=== PATIENT | female | born 1940 | race Caucasian/White ===

== ENCOUNTER 2018-07-25 03:28 | Inpatient (IN) | payer OTHER ==
[~2018-07-25] VITALS: Ht 152.4 cm; Wt 108.5 kg
[2018-07-25] MEDS ORDERED: PREG100 PO (04:09)
[2018-07-25 04:10] LABS: Calcium, Ionized (POC) 1.11 mmol/L (1.10-1.46); Chloride (POC) 97 mmol/L (98-108); Creatinine (POC) 0.6 mg/dL (0.6-1.0); Glucose (ISTAT POC) 125 mg/dL (70-99); Hemoglobin (POC) 9.5 g/dL (12.0-16.0); Potassium (POC) 3.7 mmol/L (3.5-5.5); Sodium (POC) 132 mmol/L (135-148); Total CO2 (POC) 23 mmol/L (21-32)
[2018-07-25] MEDS ORDERED: DEXL60CA3 PO (04:10)
[2018-07-25] MEDS ORDERED: VENL25 PO ×2 (04:10→04:15)
[2018-07-25] MEDS ORDERED: ANASTROZOLE5 GM PO (04:11)
[2018-07-25] MEDS ORDERED: CYCL10 PO (04:12)
[2018-07-25] MEDS ORDERED: Omeprazole20 M1 PO (04:13)
[2018-07-25] MEDS ORDERED: LEVSOD150 PO (04:14)
[2018-07-25] MEDS ORDERED: LOSA25 PO (04:14)
[2018-07-25] MEDS ORDERED: POTCHL20ER PO (04:15)
[2018-07-25] MEDS ORDERED: ONDA4 PO (04:15)
[2018-07-25] MEDS ORDERED: AMIT25 PO (04:16)
[2018-07-25] MEDS ORDERED: BUTALB-ACETAMI1 EACH PO (04:17)
[2018-07-25] MEDS ORDERED: RANITIDINE 150MG PO (04:18)
[2018-07-25] MEDS ORDERED: BUSP15 PO (04:19)
[2018-07-25] MEDS ORDERED: Driminate50 MG PO (04:20)
[2018-07-25] MEDS ORDERED: ANASTROZOLE 1MG PO (04:24)
[2018-07-25 04:27] LABS: BASOPHILS ABSOLUTE AUTO 0.05 K/mm3 (0.00-0.23); BASOPHILS PERCENT AUTO 0 % (0-2); EOSINOPHILS ABSOLUTE AUTO 0.01 K/mm3 (0.00-0.68); EOSINOPHILS PERCENT AUTO 0 % (0-6); Hemoglobin 8.2 g/dL (11.5-16.0); IMMATURE GRAN PERCENT AUTO 1 % (0-1); LYMPHOCYTES ABSOLUTE AUTO 0.96 K/mm3 (0.84-5.20); LYMPHOCYTES PERCENT AUTO 5 % (21-46); MONOCYTES ABSOLUTE AUTO 1.16 K/mm3 (0.16-1.47); MONOCYTES PERCENT AUTO 6 % (4-13); Mean Corpuscular HGB 22.3 pg (26.0-34.0); Mean Corpuscular HGB Conc 30.4 g/dL (31.5-36.5); Mean Corpuscular Volume 73 fL (80-100); Mean Platelet Volume 8.9 fL (9.1-12.4); NEUTROPHILS ABSOLUTE AUTO 17.63 K/mm3 (1.96-9.15); NEUTROPHILS PERCENT AUTO 89 % (41-73); Platelet Count 478 K/mm3 (150-400); RDW Coefficient Variation 16.8 % (11.7-14.2); RDW Standard Deviation 44.5 fL (35.1-46.3); Red Blood Cell Count 3.68 M/mm3 (3.80-5.20); White Blood Cell Count 19.91 K/mm3 (4.00-11.30)
[2018-07-25 04:50] LABS: Alanine Aminotransfer (ALT/SGP 21 U/L (12-78); Albumin, Blood 3.8 g/dL (3.4-5.0); Alk Phos 181 U/L (50-136); Anion Gap 12 mmol/L (6-16); Aspartate Aminotrans (AST/SGOT 58 U/L (12-37); Bilirubin, Total 0.5 mg/dL (0.1-1.0); Blood Urea Nitrogen 12 mg/dL (8-24); Bun/Creatinine Ratio 21.6 (12.0-20.0); CO2, Blood 22 mmol/L (21-32); Calcium, Blood 8.9 mg/dL (8.5-10.1); Chloride, Blood 98 mmol/L (98-108); Creatinine, Blood 0.56 mg/dL (0.40-1.00); Globulin, Blood 3.8 g/dL (2.2-4.0); Glomerular Filtration Rate >60 (60-); Glucose, Blood 120 mg/dL (70-99); Potassium, Blood 3.7 mmol/L (3.5-5.5); Salicylate <1.7 mg/dL (2.8-20.0); Sodium, Blood 132 mmol/L (136-145); Total Protein, Blood 7.6 g/dL (6.4-8.2)
[2018-07-25 04:53] LABS: Ethanol (Alcohol), Blood, Med <3 mg/dL; Troponin I 0.031 ng/mL (0.000-0.040)
[2018-07-25 04:59] LABS: Thyroid Stimulating Hormone 0.749 uIU/mL (0.360-4.800)
[2018-07-25 05:00] LABS: Acetaminophen, Random <2.0 ug/mL (10.0-30.0)
[2018-07-25 05:12] LABS: U Barbituate Screen DETECTED; U Benzodiazapine Screen DETECTED; U Opiates Screen DETECTED
[2018-07-25 05:13] LABS: U Amphetamine Screen Not Detected; U Buprenorphine Screen Not Detected; U Cannabinoids Screen Not Detected; U Cocaine Screen Not Detected; U Methadone Screen Not Detected; U Methamphetamine Screen Not Detected; U Oxycodone Screen Not Detected; U Phencyclidine Screen Not Detected; U Propoxyphene Screen Not Detected
[2018-07-25 05:34] LABS: Base Excess Venous 1.5 mmol/L; Bicarbonate Venous 25.6 mmol/L (24.0-30.0); PO2 Venous 71.7 mmHg (38-42); pH Blood Venous 7.44 (7.34-7.37)
[2018-07-25 05:59] LABS: Source, Urine Clean Catch
[2018-07-25 06:02] LABS: Appearance, Urine Cloudy (Clear); Bilirubin, Urine Neg (Neg); Blood, Urine 5+ (Neg); Color, Urine Yellow (P-Yellow); Glucose Qualitative, Urine Neg (Neg); Ketones, Urine 3+ (Neg); Leukocyte Esterase, Urine Neg (Neg); Nitrite, Urine Neg (Neg); Protein, Urine 4+ (Neg); Specific Gravity, Urine 1.025 (1.003-1.022); Urobilinogen, Urine NORM (Normal)
[2018-07-25 06:09] LABS: Amorphous Mod (0-Heavy); Bacteria Rare /hpf; Mucus Light (0-Heavy); Squamous Epithelial Cells Few /hpf (Few); White Blood Cells, Urine Not Seen /hpf (0-5)
[2018-07-25] MEDS ORDERED: Norco 10-325 T1 EACH PO (08:34)
--- NOTE | 2018-07-25 08:59 | NUR ---
CALLED AND SPOKE WITH PT'S DAUGHTER RADHA TO OBTAIN MEDICATION AND PAST MEDICAL HX. PT ALSO HAS OTHER 2 DAUGHTERS THAT ALSO HELP CARE FOR HER WELL TRELL LUGO, LAUREN AL.
--- NOTE | 2018-07-25 09:15 | NUR ---
RECONCILED MOST OF HOME MEDS: 1 ZIPLOC BAG OF MEDICATIONS REMAIN AT HOME AND PT'S DAUGHTER IS SUPPOSED TO BRING THEM IN TODAY. APPEARS PT TOOK APPROXIMATELY 39 TABS OF 25MG AMITRIPTYLINE. PT REC'D A 90 DAY SUPPLY 07/13/19, AND 39 TABS ARE UNACCOUNTED FOR.
[2018-07-25 10:10] LABS: BASOPHILS ABSOLUTE AUTO 0.01 K/mm3 (0.00-0.23); BASOPHILS PERCENT AUTO 0 % (0-2); EOSINOPHILS ABSOLUTE AUTO 0.04 K/mm3 (0.00-0.68); EOSINOPHILS PERCENT AUTO 0 % (0-6); Hematocrit 22.2 % (33.0-51.0); Hemoglobin 6.6 g/dL (11.5-16.0); IMMATURE GRAN ABSOLUTE AUTO 0.04 K/mm3 (0.00-0.10); IMMATURE GRAN PERCENT AUTO 0 % (0-1); LYMPHOCYTES ABSOLUTE AUTO 1.68 K/mm3 (0.84-5.20); LYMPHOCYTES PERCENT AUTO 14 % (21-46); MONOCYTES ABSOLUTE AUTO 1.08 K/mm3 (0.16-1.47); MONOCYTES PERCENT AUTO 9 % (4-13); Mean Corpuscular HGB 22.3 pg (26.0-34.0); Mean Corpuscular HGB Conc 29.7 g/dL (31.5-36.5); Mean Corpuscular Volume 75 fL (80-100); Mean Platelet Volume 8.6 fL (9.1-12.4); NEUTROPHILS ABSOLUTE AUTO 9.54 K/mm3 (1.96-9.15); NEUTROPHILS PERCENT AUTO 77 % (41-73); Platelet Count 366 K/mm3 (150-400); RDW Coefficient Variation 16.6 % (11.7-14.2); RDW Standard Deviation 45.5 fL (35.1-46.3); Red Blood Cell Count 2.96 M/mm3 (3.80-5.20); White Blood Cell Count 12.39 K/mm3 (4.00-11.30)
[2018-07-25 10:13] LABS: Alanine Aminotransfer (ALT/SGP 19 U/L (12-78); Albumin, Blood 2.9 g/dL (3.4-5.0); Alk Phos 140 U/L (50-136); Anion Gap 10 mmol/L (6-16); Aspartate Aminotrans (AST/SGOT 47 U/L (12-37); Bilirubin, Total 0.4 mg/dL (0.1-1.0); Blood Urea Nitrogen 9 mg/dL (8-24); Bun/Creatinine Ratio 19.9 (12.0-20.0); CO2, Blood 27 mmol/L (21-32); Calcium, Blood 8.1 mg/dL (8.5-10.1); Chloride, Blood 98 mmol/L (98-108); Creatinine, Blood 0.45 mg/dL (0.40-1.00); Glomerular Filtration Rate >60 (60-); Glucose, Blood 107 mg/dL (70-99); Potassium, Blood 3.2 mmol/L (3.5-5.5); Sodium, Blood 135 mmol/L (136-145); Total Protein, Blood 5.9 g/dL (6.4-8.2)
[2018-07-25 10:38] LABS: Base Excess Venous 5.1 mmol/L; Bicarbonate Venous 28.5 mmol/L (24.0-30.0); PCO2 Venous 47.4 mmHg (38-42); pH Blood Venous 7.41 (7.34-7.37)
--- NOTE | 2018-07-25 11:13 | NUR ---
PT UPDATE: SPOKE WITH DR WALTERS RE: HYPOKALEMIA. ELECTROLYTE REPLACEMENT PROTOCOL ORDERED. CONSULTED WITH GI: DR REGALADO WILL DO EGD TODAY.
--- NOTE | 2018-07-25 13:21 | NUR ---
0730: PT TO ICU ROOM 8 FROM ER, REPORT RECIEVED, CARE ASSUMED. PT INTUBATED, VENT AC 14, TV 450, FIO2 30%, PEEP 5. PT'S RR 19, TV 500'S, VSS, SPO2 100%. VERSED AT 4MG/HR, PROPOFOL AT 60MCG/KG/MIN, PT REMAINS RESPONSIVE TO VOICE AND PAIN, DOES NOT OPEN EYES. PUPILS UNEQUAL, SLUGGISHLY REACTIVE TO LIGHT. HR 70'S NSR, LS CTA, ABDOMEN SOFT, BT PRESENT. NON PITTING EDEMA NOTED TO BLE'S, EXTREMS ELEVATED ON PILLOWS, SWB RESTRAINTS IN PLACE PER ORDERS. PT HAS MASTECTOMY WOUND ON LEFT CHEST, INCISION REMAINS PARTIALLY OPEN WITH SCANT PURULENT DRAINAGE, SEE PICTURES. 22G IV RAC, RIGHT IJ CL, ALL LINES INFUSING WITHOUT DIFFICULTY. INIGUEZ PATENT AND DRAINING CLEAR YELLOW URINE. 0830: DR. WALTERS AT BEDSIDE TO ASSESS PT, PRBC INFUSION HELD AT THIS TIME PER ORDERS. LR AND PROTONIX DC'D. 0915:TV CHANGED TO [address] WALTERS, WILL TITRATE PROPOFOL AND VERSED DOWN ORDERED. 1000: PT REPOSITIONED, IS GRIMACING AND HAVING LOW TV'S WITH MOVEMENT, APPEARS TO BE UNCOMFORTABLE WITH REPOSITIONING. WILL CONTINUE TO TITRATE PROPOFOL AND VERSED ABLE. 1200: FENTANYL FIRST AID TEACHER AND PRBC'S INFUSING PER ORDERS, SEE TRANSFUSION FLOW SHEET. PT AFEBRILE. PT REPOSITIONED, ORAL CARE PROVIDED. SCDS ON BILAT LE'S. 1250: CULTURE OF LEFT CHEST INCISION SENT. PT RESTING QUIETLY IN BED, NO GRIMACING OR RESTLESSNESS NOTED. 1330: PT CONTINUES TO REST, PRBC'S INFUSING WITHOUT S/SX REACTION, MAP LOW, PROPOFOL DECREASED TO 35MCG/KG/MIN, VERSED OFF AT THIS TIME. WILL CONTINUE TO MONITOR.
--- NOTE | 2018-07-25 15:15 | NUR ---
1500: EGD COMPLETED, DR REPORTS NO ACTIVE BLEEDING FROM STOMACH AT THIS TIME. PT'S VSS, VENT SETTINGS UNCHANGED. PROPOFOL 30MCG/KG/MIN, FENTANYL 100MCG/HR. PT RESTING QUIETLY WITH NO AGITATION OR RESTLESNESS AT THIS TIME.
[2018-07-25] MEDS ORDERED: BELSOMRA20 MG PO (16:11)
[2018-07-25] MEDS ORDERED: MAGOXI400 PO (16:12)
[2018-07-25] MEDS ORDERED: DIPH50 PO (16:15)
[2018-07-25 17:07] LABS: Hematocrit 23.8 % (33.0-51.0); Hemoglobin 7.3 g/dL (11.5-16.0)
--- NOTE | 2018-07-25 17:25 | NUR ---
1700: PROTONIX INFUSING PER ORDERS. PROPOFOL DECREASED TO 15MCG/KG/MIN AT THIS TIME, VSS, PT RESTING WITH EYES CLOSED, NO S/SX DISTRESS NOTED. VENT SETTINGS UNCHANGED, FENTANYL REMAINS AT 100MCG/HR. 1730: PT OPENS EYES TO VOICE, DOES NOT FOLLOW COMMANDS AT THIS TIME. PROPOFOL AT 15MCG/KG/MIN, VSS, PT'S RR 17 AND TV 350. PROPOFOL DECREASED TO 10MCG/KG/MIN. MAP >65.
--- NOTE | 2018-07-25 17:37 | NUR ---
07/25/18 1737 Marlys Abdi [id number] PT ON VENTILATOR,History, Chart, Medications and Allergies reviewed before start of procedure.DR LYNCH OBTAINED CONSENT FOR EGD FROM PATIENTS DAUGHTERS. PT ON PROPOFOL DRIP VSS
--- NOTE | 2018-07-25 18:41 | NUR ---
1745: PT BECOMING AWAKE AND AGITATED WHILE AWAITING NEXT CORROSION CONTROL ENGINEER CARTRIGE, RR HIGH 20'S, TV'S LOW. PROPOFOL INCREASED TO 30MCG/KG/HR AT THIS TIME. 1800: FENTANYL INFUSING PER ORDERS. VSS, PT RESTING QUIETLY IN BED WITH EYES CLOSED, NO GRIMACING OR AGITATION NOTED AT THIS TIME. TV'S 300'S, RR 17-20. REPORT TO ONCOMING SHIFT.
--- NOTE | 2018-07-25 18:51 | NUR ---
1850: DR WALTERS NOTIFIED OF POST TRANSFUSION H&H, NO NEW ORDERS AT THIS TIME. WILL REVIEW HGB AND HCT ON TOMORROW AM LAB DRAW.
--- NOTE | 2018-07-25 19:40 | NUR ---
CARE ASSUMED REPORT RECEIVED, CARE ASSUMED. PT INTUBATED AND SEDATED WITH FENTANYL AND PROPOFOL. ATTEMPTED TO TITRATE PROPOFOL AT SHIFT CHANGE TO 20 AND PT WAKES UP AND BEGINS SITTING UP IN BED. PROPOFOL BACK TO 30. RESTRAINTS IN PLACE TO BILATERAL UPPER EXTREMETIES.
--- NOTE | 2018-07-26 01:43 | NUR ---
POISON CONTROL POISON CONTROL CALLED FOR UPDATE ON PATIENT AND SPOKE WITH ADONIS YUAN RN. PER CHRIS YUAN POISON CONTROL RECOMMENDING REPEAT EKG IN THE MORNING AND THAT BICARB IS NOT NEEDED. SPOKE WITH DR. ALONSO, HOSPITALIST ABOUT EKG RECOMMENDATION AND NEW ORDER RECEIVED. WILL DISCUSS BICARB RECOMMENDATION WITH DAY SHIFT RN TO ADDRESS WITH WARPING MILL OPERATOR.
[2018-07-26 01:49] LABS: Hematocrit 22.5 % (33.0-51.0)
[2018-07-26 01:51] LABS: BASOPHILS ABSOLUTE AUTO 0.03 K/mm3 (0.00-0.23); BASOPHILS PERCENT AUTO 0 % (0-2); EOSINOPHILS PERCENT AUTO 1 % (0-6); Hematocrit 22.9 % (33.0-51.0); Hemoglobin 7.1 g/dL (11.5-16.0); IMMATURE GRAN ABSOLUTE AUTO 0.11 K/mm3 (0.00-0.10); IMMATURE GRAN PERCENT AUTO 1 % (0-1); LYMPHOCYTES ABSOLUTE AUTO 1.41 K/mm3 (0.84-5.20); LYMPHOCYTES PERCENT AUTO 12 % (21-46); MONOCYTES ABSOLUTE AUTO 1.24 K/mm3 (0.16-1.47); MONOCYTES PERCENT AUTO 11 % (4-13); Mean Corpuscular HGB 23.4 pg (26.0-34.0); Mean Corpuscular Volume 76 fL (80-100); Mean Platelet Volume 8.7 fL (9.1-12.4); NEUTROPHILS ABSOLUTE AUTO 8.94 K/mm3 (1.96-9.15); NEUTROPHILS PERCENT AUTO 76 % (41-73); Platelet Count 331 K/mm3 (150-400); RDW Coefficient Variation 17.7 % (11.7-14.2); RDW Standard Deviation 48.4 fL (35.1-46.3); Red Blood Cell Count 3.03 M/mm3 (3.80-5.20); White Blood Cell Count 11.83 K/mm3 (4.00-11.30)
[2018-07-26 02:06] LABS: Alanine Aminotransfer (ALT/SGP 16 U/L (12-78); Albumin, Blood 2.6 g/dL (3.4-5.0); Albumin/Globulin Ratio 0.9 (0.8-1.8); Alk Phos 134 U/L (50-136); Anion Gap 7 mmol/L (6-16); Aspartate Aminotrans (AST/SGOT 32 U/L (12-37); Bilirubin, Total 0.4 mg/dL (0.1-1.0); Blood Urea Nitrogen 9 mg/dL (8-24); Bun/Creatinine Ratio 17.1 (12.0-20.0); CO2, Blood 34 mmol/L (21-32); Calcium, Blood 7.1 mg/dL (8.5-10.1); Chloride, Blood 94 mmol/L (98-108); Creatinine, Blood 0.53 mg/dL (0.40-1.00); Globulin, Blood 2.9 g/dL (2.2-4.0); Glomerular Filtration Rate >60 (60-); Glucose, Blood 113 mg/dL (70-99); Phosphorus, Blood 3.8 mg/dL (2.5-4.9); Potassium, Blood 3.2 mmol/L (3.5-5.5); Sodium, Blood 135 mmol/L (136-145); Total Protein, Blood 5.5 g/dL (6.4-8.2)
[2018-07-26 02:10] LABS: Magnesium, Blood 1.1 mg/dL (1.6-2.4)
--- NOTE | 2018-07-26 03:29 | NUR ---
CRITICAL LABS MEDS/LABS ORDERED PER ELECTROLYTE PROTOCOL FOR AM LABS. SEE ORDERS.
--- NOTE | 2018-07-26 06:31 | NUR ---
SUMMARY THROUGHOUT NIGHT PT HAS MAINTAINED VITAL SIGNS, SEE FLOWSHEET. ATTEMPTED SEDATION TITRATION THIS MORNING AND PT BECAME EXTREMELY AGITATED, PULLING AT RESTRAINTS AND ATTEMPTING TO PULL AT ETT TUBE. SEE ICU FLOWSHEET FOR TITRATIONS. ELECTROLYTE REPLACEMENT PER PROTOCOL ORDERS. QTC NOTED TO CONTINUE TO BE ELONGATED ON THIS MORNING'S EKG. WILL DISCUSS WITH DAY SHIFT RN FOR POISON CONTROL CONVERSATION AND MD ASSESSMENT.
--- NOTE | 2018-07-26 07:24 | NUR ---
ASSUMED CARE REPORT FROM CHRIS MORRISSEY. PT SEDATED, INTUBATED. A/C 16 VT 300 PEEP 5.0 FIO2 30% 7.5 ETT, 23 JONES. LEFT MASTECTOMY OOZING WHERE OPEN. SEDATED ON PROPOFOL 40 MCG/KG/MIN. FENTANYL AT 100 MCG/HR
--- NOTE | 2018-07-26 10:36 | NUR ---
DAUGHTER, RADHA, UPDATED
--- NOTE | 2018-07-26 11:43 | NUR ---
DAUGHTER, RADHA, UPDATED ON DR. TORRES'S VISIT
--- NOTE | 2018-07-26 12:32 | NUR ---
MD VISIT DR. CAN IN. BILATERAL WRIST XRAYS FOR SEVERE PAIN WITH MOVEMENT
--- NOTE | 2018-07-26 14:11 | NUR ---
POISON CONTROL UPDATED
--- NOTE | 2018-07-26 14:11 | NUR ---
MD VISIT DR. WALTERS IN. ORDERS TO BEGIN TO LIGHTEN SEDATION
--- NOTE | 2018-07-26 15:56 | NUR ---
DAUGHTERS WERE IN TO VISIT. RADHA TOOK PATIENT'S RINGS
--- NOTE | 2018-07-26 16:13 | NUR ---
TITRATED PROPOFOL TO 30 MCG/KG/MIN. PT COUGHED, VENT ALARM, BACK TO 40 MCK/KG/MIN
--- NOTE | 2018-07-26 17:37 | NUR ---
BIOX DROPPED. PATIENT EDEMATOUS. CALLED DR. WALTERS RE: POSSIBILITY OF LASIX. SHE WILL EVALUATE WHEN SHE COMES IN.
--- NOTE | 2018-07-26 19:21 | NUR ---
BEDSIDE REPORT TO CHRIS MORRISSEY. PATIENT IS DIURESING WELL.
--- NOTE | 2018-07-26 19:51 | NUR ---
CARE ASSUMED REPORT RECEIVED, CARE ASSUMED. PT INTUBATED AND SEDATED. PT HAS CONSTANT FACIAL GRIMACE, WITH MOVEMENT OF BILATERAL WRISTS PATIENT WITHDRAWS AND TIGHTENS SHOULDERS AND FACE. PT MEDICATED. VITAL SIGNS STABLE. SEE FLOWSHEET. SEE ASSESSMENT.
--- NOTE | 2018-07-26 23:17 | NUR ---
DR. WALTERS COMMUNICATION DR. WALTERS NOTIFIED OF ONGOING TEMPERATURE. NEW ORDER FOR BLOOD CULTURES AND ABX.
--- NOTE | 2018-07-27 02:25 | NUR ---
PAIN MANAGEMENT THROUGHOUT NIGHT, PT HAS CONTINUOUSLY FURROWED BROW. WITHDRAWS TO TOUCH ON BILATERAL UPPER EXTREMITIES AND FACE/SHOULDERS BECOME TENSE. PT MEDICATED WITH FENTANYL PRN. BP NOTED TO BE ELEVATED DURING BEDBATH BUT RESOLVED WITH DECREASED STIMULI AND FENTANYL.
[2018-07-27 03:40] LABS: BASOPHILS ABSOLUTE AUTO 0.03 K/mm3 (0.00-0.23); BASOPHILS PERCENT AUTO 0 % (0-2); EOSINOPHILS ABSOLUTE AUTO 0.09 K/mm3 (0.00-0.68); EOSINOPHILS PERCENT AUTO 1 % (0-6); Hematocrit 23.3 % (33.0-51.0); Hemoglobin 7.2 g/dL (11.5-16.0); IMMATURE GRAN PERCENT AUTO 1 % (0-1); LYMPHOCYTES ABSOLUTE AUTO 1.33 K/mm3 (0.84-5.20); LYMPHOCYTES PERCENT AUTO 10 % (21-46); MONOCYTES ABSOLUTE AUTO 1.87 K/mm3 (0.16-1.47); MONOCYTES PERCENT AUTO 14 % (4-13); Mean Corpuscular HGB 23.6 pg (26.0-34.0); Mean Corpuscular HGB Conc 30.9 g/dL (31.5-36.5); Mean Corpuscular Volume 76 fL (80-100); Mean Platelet Volume 8.5 fL (9.1-12.4); NEUTROPHILS ABSOLUTE AUTO 10.45 K/mm3 (1.96-9.15); NEUTROPHILS PERCENT AUTO 75 % (41-73); Platelet Count 300 K/mm3 (150-400); RDW Coefficient Variation 18.4 % (11.7-14.2); RDW Standard Deviation 50.3 fL (35.1-46.3); Red Blood Cell Count 3.05 M/mm3 (3.80-5.20); White Blood Cell Count 13.87 K/mm3 (4.00-11.30)
[2018-07-27 04:00] LABS: Albumin, Blood 2.3 g/dL (3.4-5.0); Anion Gap 10 mmol/L (6-16); Blood Urea Nitrogen 6 mg/dL (8-24); Bun/Creatinine Ratio 10.8 (12.0-20.0); CO2, Blood 34 mmol/L (21-32); Calcium, Blood 7.2 mg/dL (8.5-10.1); Chloride, Blood 91 mmol/L (98-108); Creatinine, Blood 0.55 mg/dL (0.40-1.00); Glomerular Filtration Rate >60 (60-); Glucose, Blood 102 mg/dL (70-99); Magnesium, Blood 1.6 mg/dL (1.6-2.4); Potassium, Blood 2.5 mmol/L (3.5-5.5); Sodium, Blood 135 mmol/L (136-145)
--- NOTE | 2018-07-27 04:15 | NUR ---
AM LABS MEDS/LABS ORDERED PER ELECTROLYTE PROTOCOL FOR MORNING LABS.
--- NOTE | 2018-07-27 05:25 | NUR ---
WEANING/SEDATION VACATION PT TITRATED OFF PROPOFOL, SEE FLOWSHEET. VENT WEANING TRIAL PER RESPIRATORY THERAPY. PT NOTED TO BE AGITATED, FIDGETING IN BED AND HYPERTENSIVE DURING TRIAL. PT RE-SEDATED AND IS NOW RESTING QUIETLY.
--- NOTE | 2018-07-27 06:45 | NUR ---
SUMMARY SINCE PREVIOUS NOTE, PT HAS REMAINED SEDATED. BP/HR STABLE. PT CONTINUES TO BE FEBRILE. 02 SAT STABLE ON VENT.
--- NOTE | 2018-07-27 07:12 | NUR ---
REPORT TO CHRIS SHANKS.
--- NOTE | 2018-07-27 07:15 | NUR ---
ASSUMED CARE OF PATIENT; SEE ASSESSMENT CHARTING FOR DETAILS. PATIENT REMAINS INTUBATED AND ON VENTILATOR WITH SETTINGS: A/C 16, TV 300, PEEP 5 AND FIO2 30%. PROPOFOL DRIP AT 40MCG/KG/MIN; RIKERS 2-3. BILAT. HANDS SWOLLEN AND PATIENTS MOANS WITH ANY SORT OF TOUCH TO FINGERS/HANDS. INIGUEZ TO GRAVITY AND DRAINING FAIR AMOUNT. MONITOR REMAINS NSR; BP MODERATELY ELEVATED. OGT CLAMPED. EXTREMITIES ELEVATED WITH PILLOWS. DRESSING IN PLACE TO L BREAST (MASTECTOMY).
--- NOTE | 2018-07-27 09:55 | NUR ---
DR. WALTERS HERE; SEE ORDERS. PLACED PATIENT ON P/S 7; TOLERATING WELL.
--- NOTE | 2018-07-27 10:05 | NUR ---
PAULETTE TO PATIENTS' RADHA JOSEPH; DR. WALTERS WOULD LIKE HER TO COME TO HOSPITAL, BEFORE NOON, TO DISCUSS POC. RADHA AGREEABLE AND WILL BRING HER SISTERS, ALSO.
--- NOTE | 2018-07-27 12:00 | NUR ---
DAUGHTERS ARRIVED; DR. WALTERS HAD DISCUSSION; DETERMINED THAT FAMILY WANT PATIENT EXTUBATED WHEN ABLE AND CONT. ALL TREATMENT. PROPOFOL DRIP AT 10MCG SINCE ON P/S OF 7. RECEIVED 50MCG FENTANYL, X 1, FOR GENERALIZED DISCOMFORT. PAIN VERY PREVALENT TO BILAT. HANDS TO ANY TOUCH; JOSSUE. R HAND. KEPT ELEVATED TOLERATED.
--- NOTE | 2018-07-27 12:17 | NUR ---
EXTUBATED AND PLACED ON 3L/MIN NC; TOLERATING WELL. OPENS EYES FOR SHORT PERIODS; MOANS WHEN HANDS ETC TOUCHED. FAMILY MEMBERS AT BEDSIDE AND SUPPORTIVE OF PATIENT. RR STAYING UNDER 20/MIN; OVERALL STATUS GOOD BUT DOES DRIFT OFF TO SLEEP IF NOT DISTURBED.
--- NOTE | 2018-07-27 18:00 | NUR ---
SUMMARY: POWERGLIDE PLACED TO MARYANN (18G/10CM) BY CHRIS AGRAWAL (PCU). DR. WALTERS WANTED A PERIPHERAL LINE PLACED AND THEN D/C CENTRAL LINE. ALSO, WANTS INIGUEZ CATH. DC'D ONCE PATIENT MORE ALERT AND FOLLOWING COMMANDS. INIGUEZ OUTPUT 725 THE LAST 12 HOURS; 20MG LASIX GIVEN EARLIER. REMAINS VERY EDEMATOUS TO HANDS AND R HAND/ARM VERY PAINFUL TO ANY TOUCH; XRAY TAKEN OF R FOREARM (2 VIEW); NO FRACTURE ETC. NOTED; ARTHRITIS ETC; SEE RADIOLOGY REPORT. TYLENOL 650 MG GIVEN FOR GENERAL DISCOMFORT AND LOWGRADE FEVER; PATIENT MORE RESTFUL. ARMS ELEVATED ON PILLOWS. NS INFUSING AT TKO RATE; ALL OTHER DRIPS OFF. WILL REPORT TO ONGOING RN.
--- NOTE | 2018-07-27 19:30 | NUR ---
ASSUMED CARE BEDSIDE REPORT RECIEVED. PT IS LAYING IN BED WITH EXTREMITIES ELEVATED ON PILLOWS. PT AWAKENS TO VERBAL STIMULI, BUT IS CONFUSED AND ONLY RESPONDS APPROPRIATELY TO SIMPLE QUESTIONS. PT FURROWS BROW AND MOANS OUT. WHEN ASKED ABOUT PAIN, PT SHAKES HEAD NO INITIALLY. PT CONTINUES TO MOAN OUT THOUGH. VITAL SIGNS STABLE WITH 2L O2 NC. CL IS C/D/I WITH NS TKO. PG TO MARYANN C/D/I, SALINE LOCKED. INIGUEZ IN PLACE WITH YELLOW OUTPUT NOTED. PT WITH EDEMA IN BUE AND BLE. RIGHT WRIST TENDER/PAINFUL TO TOUCH/MOVEMENT. WILL CONTINUE TO MONITOR.
[2018-07-28 05:11] LABS: BASOPHILS ABSOLUTE AUTO 0.04 K/mm3 (0.00-0.23); BASOPHILS PERCENT AUTO 0 % (0-2); EOSINOPHILS ABSOLUTE AUTO 0.08 K/mm3 (0.00-0.68); EOSINOPHILS PERCENT AUTO 1 % (0-6); Hematocrit 24.5 % (33.0-51.0); Hemoglobin 7.4 g/dL (11.5-16.0); IMMATURE GRAN ABSOLUTE AUTO 0.09 K/mm3 (0.00-0.10); IMMATURE GRAN PERCENT AUTO 1 % (0-1); LYMPHOCYTES ABSOLUTE AUTO 0.85 K/mm3 (0.84-5.20); LYMPHOCYTES PERCENT AUTO 5 % (21-46); MONOCYTES ABSOLUTE AUTO 1.92 K/mm3 (0.16-1.47); MONOCYTES PERCENT AUTO 12 % (4-13); Mean Corpuscular HGB 23.4 pg (26.0-34.0); Mean Corpuscular HGB Conc 30.2 g/dL (31.5-36.5); Mean Corpuscular Volume 78 fL (80-100); Mean Platelet Volume 8.8 fL (9.1-12.4); NEUTROPHILS ABSOLUTE AUTO 12.89 K/mm3 (1.96-9.15); NEUTROPHILS PERCENT AUTO 81 % (41-73); Platelet Count 324 K/mm3 (150-400); RDW Coefficient Variation 18.7 % (11.7-14.2); RDW Standard Deviation 52.2 fL (35.1-46.3); Red Blood Cell Count 3.16 M/mm3 (3.80-5.20); White Blood Cell Count 15.87 K/mm3 (4.00-11.30)
[2018-07-28 05:45] LABS: Anion Gap 8 mmol/L (6-16); Blood Urea Nitrogen 12 mg/dL (8-24); Bun/Creatinine Ratio 17.2 (12.0-20.0); CO2, Blood 31 mmol/L (21-32); Calcium, Blood 8.1 mg/dL (8.5-10.1); Chloride, Blood 97 mmol/L (98-108); Glomerular Filtration Rate >60 (60-); Glucose, Blood 105 mg/dL (70-99); Phosphorus, Blood 3.7 mg/dL (2.5-4.9); Potassium, Blood 3.5 mmol/L (3.5-5.5); Sodium, Blood 136 mmol/L (136-145)
--- NOTE | 2018-07-28 06:23 | NUR ---
SHIFT SUMMARY NO ACUTE CHANGES THIS SHIFT. PT HAS BEEN ABLE TO FOLLOW SOME COMMANDS AND ANSWER SOME QUESTIONS APPROPRIATELY. VITAL SIGNS HAVE REMAINED STABLE, PT ON 2L O2 NC. PT MOANS OUT AT TIMES, PT MED WITH FENTANYL PRN. CENTRAL LINE AND INIGUEZ DC'D. POWER GLIDE TO MARYANN REMAINS C/D/I WITH NS TKO. WILL CONTINUE TO MONITOR AND REPORT OFF TO ONCOMING RN.
--- NOTE | 2018-07-28 07:30 | NUR ---
ASSUMED CARE OF PATIENT; SEE ASSESSMENT CHARTING FOR DETAILS. PATIENT PLEASANT; DROWSY BUT ROUSES TO VERBAL STIMULI; NO UNDUE DISCOMFORT. RN ABLE TO GENTLY TOUCH R HAND AND PATIENT DID NOT MOAN AND PULL BACK; STATES IT IS LESS PAINFUL. AWARE SHE IS IN THE HOSPITAL; SPEECH CLEAR BUT SOFT. ABLE TO FOLLOW COMMANDS BUT VERY WEAK. HANDS AND LEGS ELEVATED ON PILLOWS. TOLERATING PO LIQUIDS AND MEDS WITHOUT ISSUE. ABLE TO SWALLOW PILLS WITHOUT CHEWING THEM UP. HIRA DURAN'Sree BY DEVELOPER ADVISOR, THIS AM; DENIES NEED TO VOID AT THIS TIME. OXYGEN AT 2L/MIN; BIOX. 94%; LUNGS CLEAR.
--- NOTE | 2018-07-28 07:50 | NUR ---
DR. MCMAHAN, HOSPITALIST, HERE; CHANGED PATIENT TO MED. FLOOR STATUS WITHOUT TELEMETRY; SEE FURTHER ORDERS.
--- NOTE | 2018-07-28 09:00 | NUR ---
TOLERATED PO MEDS. AND LIQUID DIET WITHOUT ISSUE. CONT. WITH BELCHING DURING MEAL BUT NO NAUSEA AND NO EMESIS.
--- NOTE | 2018-07-28 09:20 | NUR ---
MEDICATED WITH 25MCG/IVT OF FENTANYL; PATIENT MOANING MORE FREQUENTLY; MORE RESTFUL SHORTLY AFTER MED. GIVEN.
--- NOTE | 2018-07-28 10:04 | NUR ---
DR. POWELL HERE TO EVAL. PATIENT; SEE ORDERS.
--- NOTE | 2018-07-28 15:05 | NUR ---
REPORT CALLED TO JUAN RAMON CHEN RN; PATIENT TO TRANSFER TO [facility]. FLOOR, ROOM 325.
--- NOTE | 2018-07-28 15:20 | NUR ---
TRANSFERRED TO MEDICAL FLOOR, ROOM 329, VIA BED. OXYGEN AT 2L/MIN VIA NC. BELONGINGS, CHART AND MEDS. WITH PATIENT.
--- NOTE | 2018-07-28 16:18 | NUR ---
Echocardiogram completed.
--- NOTE | 2018-07-28 16:35 | NUR ---
PT ARRIVED TO THE MEDICAL FLOOPR FROM THE ICU, DROWSY AWAKENS EAILY, PT HAD A SMALL BM ON ARRIVAL TO THE ROOM ON THE BED FRASER, PT IS BED REST AT THIS TIME, PT IS ON O2 @ 2L/MIN VIA NC, THE PT APPEARS TO BE BREATHING EASILY AT REST, PT REPORTED NECK PAIN AND WAS MEDICATED FOR PAIN, PT ORIENTED TO THE ROOM CALL SYSTEM, CALL LIGHT IN REACH, BED IN LOW POSITION SCUD'S ON
--- NOTE | 2018-07-29 04:27 | NUR ---
SHIFT SUMMARY PT REMAINS PAINFUL WITH MOVEMENT, ESPECIALLY TO BOTH WRIST. REPORTS PAIN IN LEGS ALSO. ABLE TO ASSIST IN TURNING FOR ATTEND CHANGES BUT IT IS VERY DIFFICULT FOR HER. PT REQUESTED PAIN MEDICATION X2. MEDICATED PER EMAR ORDERS. PT A/OX4, PLESANT WITH CARE. VITALS STABLE. O2 IN PLACE. LUNGS DIMINISHED. TELE IN PLACE WITH NSR. NO CHANGES TO REPORT. WILL CONTINUE TO MONITOR AND REPORT TO ONCOMING RN.
[2018-07-29 05:56] LABS: Albumin, Blood 2.1 g/dL (3.4-5.0); Anion Gap 8 mmol/L (6-16); Blood Urea Nitrogen 20 mg/dL (8-24); Bun/Creatinine Ratio 12.7 (12.0-20.0); CO2, Blood 30 mmol/L (21-32); Calcium, Blood 8.1 mg/dL (8.5-10.1); Chloride, Blood 98 mmol/L (98-108); Creatinine, Blood 1.57 mg/dL (0.40-1.00); Glomerular Filtration Rate 34 (60-); Glucose, Blood 102 mg/dL (70-99); Phosphorus, Blood 3.8 mg/dL (2.5-4.9); Sodium, Blood 136 mmol/L (136-145)
--- NOTE | 2018-07-29 17:39 | NUR ---
PATIENT HAS BEEN SLEEPY MOST OF THE SHIFT. SHE HAD LG LOOSE BM WHICH WAS SENT FOR CDFF. SHE HAD ONE REQUEST FOR PAIN MEDS. CALL LIGHT WITHIN REACH.
--- NOTE | 2018-07-29 21:28 | NUR ---
vitals taken on left radial due to swelling in right arm, ok'd by RN
--- NOTE | 2018-07-30 07:29 | NUR ---
a+o, pain better controled with home dose of medication, tried everything prescribed then got home prescribtion from hospitalist, picc line did not draw but infused with no difficulty, walking rounds completed with day shift
[2018-07-30 07:56] LABS: Albumin, Blood 2.3 g/dL (3.4-5.0); Anion Gap 6 mmol/L (6-16); Blood Urea Nitrogen 23 mg/dL (8-24); Bun/Creatinine Ratio 13.6 (12.0-20.0); CO2, Blood 30 mmol/L (21-32); Calcium, Blood 8.5 mg/dL (8.5-10.1); Chloride, Blood 100 mmol/L (98-108); Creatinine, Blood 1.69 mg/dL (0.40-1.00); Glomerular Filtration Rate 31 (60-); Glucose, Blood 107 mg/dL (70-99); Phosphorus, Blood 4.1 mg/dL (2.5-4.9); Potassium, Blood 4.9 mmol/L (3.5-5.5); Sodium, Blood 136 mmol/L (136-145)
--- NOTE | 2018-07-30 18:07 | NUR ---
SHIFT SUMMARY PATIENT A&O X4. HAS HAD COMPLAINTS OF PAIN THROUGHOUT THE SHIFT. RN MEDICATED PER E MAR. HAS HAD A WET PRODUCATIVE COUGH THIS SHIFT. HOB @ 45. SCDS ON. PATIENT RESTED THROUGHOUT THE SHIFT. BED ALARM ON, CALL LIGHT WITHIN REACH. NO ACUTE CHANGES. RN WILL CONTINUE TO MONITOR.
--- NOTE | 2018-07-31 04:56 | NUR ---
PT has chronic pain and medicated several times with tylenol and had norco 5/325 mg tab one q 8 hours scheduled with helpful effect. She is on lyrica. No bowel incontinence several large urinary incontinece. Hard of hearing but able to communicate. PT has diffficulty with bed mobility, toileting and ADLS. Max assist of 2 to change attends. Skin of periand anal area excoriated from moisture. no diarrhea on oral vanco to treat cdiff positive.
[2018-07-31 06:25] LABS: BASOPHILS ABSOLUTE AUTO 0.05 K/mm3 (0.00-0.23); BASOPHILS PERCENT AUTO 0 % (0-2); EOSINOPHILS ABSOLUTE AUTO 0.59 K/mm3 (0.00-0.68); EOSINOPHILS PERCENT AUTO 5 % (0-6); Hematocrit 27.1 % (33.0-51.0); Hemoglobin 8.2 g/dL (11.5-16.0); IMMATURE GRAN ABSOLUTE AUTO 0.12 K/mm3 (0.00-0.10); IMMATURE GRAN PERCENT AUTO 1 % (0-1); LYMPHOCYTES ABSOLUTE AUTO 1.31 K/mm3 (0.84-5.20); LYMPHOCYTES PERCENT AUTO 10 % (21-46); MONOCYTES ABSOLUTE AUTO 1.85 K/mm3 (0.16-1.47); MONOCYTES PERCENT AUTO 14 % (4-13); Mean Corpuscular HGB 24.3 pg (26.0-34.0); Mean Corpuscular HGB Conc 30.3 g/dL (31.5-36.5); Mean Corpuscular Volume 80 fL (80-100); Mean Platelet Volume 8.7 fL (9.1-12.4); NEUTROPHILS ABSOLUTE AUTO 9.33 K/mm3 (1.96-9.15); NEUTROPHILS PERCENT AUTO 70 % (41-73); Platelet Count 441 K/mm3 (150-400); RDW Coefficient Variation 19.9 % (11.7-14.2); Red Blood Cell Count 3.38 M/mm3 (3.80-5.20); White Blood Cell Count 13.25 K/mm3 (4.00-11.30)
[2018-07-31 06:42] LABS: Alanine Aminotransfer (ALT/SGP 13 U/L (12-78); Albumin, Blood 2.1 g/dL (3.4-5.0); Albumin/Globulin Ratio 0.5 (0.8-1.8); Alk Phos 160 U/L (50-136); Anion Gap 7 mmol/L (6-16); Aspartate Aminotrans (AST/SGOT 10 U/L (12-37); Bilirubin, Total 0.3 mg/dL (0.1-1.0); Blood Urea Nitrogen 23 mg/dL (8-24); Bun/Creatinine Ratio 14.9 (12.0-20.0); CO2, Blood 29 mmol/L (21-32); Calcium, Blood 8.6 mg/dL (8.5-10.1); Chloride, Blood 103 mmol/L (98-108); Creatinine, Blood 1.54 mg/dL (0.40-1.00); Globulin, Blood 4.3 g/dL (2.2-4.0); Glomerular Filtration Rate 34 (60-); Glucose, Blood 107 mg/dL (70-99); Phosphorus, Blood 4.3 mg/dL (2.5-4.9); Potassium, Blood 5.6 mmol/L (3.5-5.5); Sodium, Blood 139 mmol/L (136-145); Total Protein, Blood 6.4 g/dL (6.4-8.2)
--- NOTE | 2018-07-31 09:24 | NUR ---
PATIENT RUNNING SINUS TACH IN THE 130-150S THIS MORNING. DR. MOSS NOTIFIED. EKG ORDERED. WILL CONTINUE TO MONITOR.
--- NOTE | 2018-07-31 10:21 | NUR ---
TELE MONITOR CALLED TO LET ME KNOW PATIENT WAS IN AFIB. DR. MOSS CALLED, WAITING FOR A CALL BACK. PATIENT IS ASYMPTOMATIC. LAYING IN BED. RN WILL CONTINUE TO MONITOR.
[2018-07-31 14:08] LABS: Albumin, Blood 2.2 g/dL (3.4-5.0); Anion Gap 6 mmol/L (6-16); Blood Urea Nitrogen 24 mg/dL (8-24); Bun/Creatinine Ratio 15.9 (12.0-20.0); CO2, Blood 28 mmol/L (21-32); Calcium, Blood 8.5 mg/dL (8.5-10.1); Chloride, Blood 102 mmol/L (98-108); Creatinine, Blood 1.51 mg/dL (0.40-1.00); Glomerular Filtration Rate 35 (60-); Glucose, Blood 135 mg/dL (70-99); Phosphorus, Blood 4.4 mg/dL (2.5-4.9); Potassium, Blood 4.9 mmol/L (3.5-5.5); Sodium, Blood 136 mmol/L (136-145)
--- NOTE | 2018-07-31 19:13 | NUR ---
SHIFT SUMMARY PATIENT A&O X4. HAS BEEN SLEEPING MOST OF THE SHIFT. TELE AFIB @ 130-[address] MOSS NOTIFIED. PATIENT ASYMPTOMATIC. DIET ADVANCED THIS SHIFT. MEDICATED X2 FOR CHRONIC PAIN. FAMILY AT THE BEDSIDE. NO ACUTE CHANGES.
[2018-08-01 05:05] LABS: BASOPHILS ABSOLUTE AUTO 0.07 K/mm3 (0.00-0.23); BASOPHILS PERCENT AUTO 1 % (0-2); EOSINOPHILS PERCENT AUTO 5 % (0-6); Hematocrit 27.4 % (33.0-51.0); Hemoglobin 8.3 g/dL (11.5-16.0); IMMATURE GRAN ABSOLUTE AUTO 0.11 K/mm3 (0.00-0.10); IMMATURE GRAN PERCENT AUTO 1 % (0-1); LYMPHOCYTES ABSOLUTE AUTO 1.61 K/mm3 (0.84-5.20); LYMPHOCYTES PERCENT AUTO 13 % (21-46); MONOCYTES PERCENT AUTO 14 % (4-13); Mean Corpuscular HGB 24.1 pg (26.0-34.0); Mean Corpuscular HGB Conc 30.3 g/dL (31.5-36.5); Mean Corpuscular Volume 80 fL (80-100); Mean Platelet Volume 8.7 fL (9.1-12.4); NEUTROPHILS ABSOLUTE AUTO 8.39 K/mm3 (1.96-9.15); NEUTROPHILS PERCENT AUTO 67 % (41-73); Platelet Count 444 K/mm3 (150-400); RDW Coefficient Variation 20.7 % (11.7-14.2); RDW Standard Deviation 58.8 fL (35.1-46.3); Red Blood Cell Count 3.44 M/mm3 (3.80-5.20); White Blood Cell Count 12.48 K/mm3 (4.00-11.30)
[2018-08-01 05:34] LABS: Albumin, Blood 2.1 g/dL (3.4-5.0); Anion Gap 9 mmol/L (6-16); Blood Urea Nitrogen 25 mg/dL (8-24); Bun/Creatinine Ratio 16.2 (12.0-20.0); CO2, Blood 28 mmol/L (21-32); Calcium, Blood 8.6 mg/dL (8.5-10.1); Chloride, Blood 101 mmol/L (98-108); Creatinine, Blood 1.54 mg/dL (0.40-1.00); Glomerular Filtration Rate 34 (60-); Glucose, Blood 99 mg/dL (70-99); Potassium, Blood 5.3 mmol/L (3.5-5.5); Sodium, Blood 138 mmol/L (136-145)
--- NOTE | 2018-08-01 19:04 | NUR ---
PT A&OX4, FORGETFULL AT TIMES. B/P RAN HIGH AND MD MADE AWARE. PRN IV HYDRALAZINE ORDERED AND GIVEN X2. B/P NOW 161/87. PT RUNNING NSR PER TECHNOLOGY RISK INTERN. PT UP WITH ASSIST OF 1-2 WALKER AND GAIT BELT. SAT UP IN CHAIR TODAY X2. PT HAD INCONTINENT BMS X2. FAMILY AT BEDSIDE REQUESTED TO TALK TO MD, AND MD WAS NOTIFIED. MD MET WITH FAMILY AND QUESTIONS ANSWERED. PT HAS HEADACHE, TREATED PER OCT. BED ALARM ACTIVATED. CALL LIGHT AND PERSONAL BELONGINGS WITHIN REACH. REPORT GIVEN TO ONCOMING NURSE.
--- NOTE | 2018-08-01 21:08 | NUR ---
08/01/182106 SCHOOL PRINCIPAL CALLED TO SAY HEART RHYTHM HAS BEEN ST TO ATRIAL FIB AT 118-120 SINCE ABOUT 1741. PT STARTED ON METOPROLOL AT 8 PM TONIGHT. PT SLEEPING AT PRESENT. WILL CONTINUE TO MONITOR.
--- NOTE | 2018-08-01 23:27 | NUR ---
08/01/18 2330 RN CALLED [employer] FOR FOLLOW-UP STATUS ON RHYTHM. PT IS PRESENTLY ATRIAL FIB AT 106. PT IN ROOM SLEEPING.
--- NOTE | 2018-08-02 03:50 | NUR ---
08/02/18 0350 PT SLEEPING WELL. HEART ROLLWAY MAN CALLED AT 0042 THAT PT HAD CONVERTTED TO SR IN THE 80'S. PT CONTINUES TO BE IN SINUS RHYTHM. VITALS IMPROVED WHEN CHECKED EARLIER.
--- NOTE | 2018-08-02 04:42 | NUR ---
08/02/18 0430 UP [place] [facility] [place] VERY SMALL BLACK BM. DENIES ANY PAIN OR S/S. HEART RATE INCREASES WHENEVER SHE GETS UP. ASSISTED BACK TO BED AND WILL GET VITALS.
[2018-08-02 05:26] LABS: BASOPHILS ABSOLUTE AUTO 0.08 K/mm3 (0.00-0.23); BASOPHILS PERCENT AUTO 1 % (0-2); EOSINOPHILS PERCENT AUTO 3 % (0-6); Hematocrit 27.8 % (33.0-51.0); Hemoglobin 8.5 g/dL (11.5-16.0); IMMATURE GRAN ABSOLUTE AUTO 0.16 K/mm3 (0.00-0.10); IMMATURE GRAN PERCENT AUTO 1 % (0-1); LYMPHOCYTES ABSOLUTE AUTO 2.07 K/mm3 (0.84-5.20); LYMPHOCYTES PERCENT AUTO 16 % (21-46); MONOCYTES ABSOLUTE AUTO 1.49 K/mm3 (0.16-1.47); MONOCYTES PERCENT AUTO 11 % (4-13); Mean Corpuscular HGB 23.9 pg (26.0-34.0); Mean Corpuscular HGB Conc 30.6 g/dL (31.5-36.5); Mean Corpuscular Volume 78 fL (80-100); Mean Platelet Volume 8.8 fL (9.1-12.4); NEUTROPHILS ABSOLUTE AUTO 8.83 K/mm3 (1.96-9.15); NEUTROPHILS PERCENT AUTO 68 % (41-73); Platelet Count 511 K/mm3 (150-400); RDW Coefficient Variation 21.3 % (11.7-14.2); RDW Standard Deviation 60.6 fL (35.1-46.3); Red Blood Cell Count 3.55 M/mm3 (3.80-5.20); White Blood Cell Count 13.03 K/mm3 (4.00-11.30)
[2018-08-02 05:45] LABS: Albumin, Blood 2.2 g/dL (3.4-5.0); Anion Gap 9 mmol/L (6-16); Blood Urea Nitrogen 25 mg/dL (8-24); Bun/Creatinine Ratio 16.8 (12.0-20.0); CO2, Blood 28 mmol/L (21-32); Calcium, Blood 8.6 mg/dL (8.5-10.1); Chloride, Blood 101 mmol/L (98-108); Creatinine, Blood 1.49 mg/dL (0.40-1.00); Glomerular Filtration Rate 36 (60-); Glucose, Blood 102 mg/dL (70-99); Phosphorus, Blood 4.7 mg/dL (2.5-4.9); Potassium, Blood 4.4 mmol/L (3.5-5.5); Sodium, Blood 138 mmol/L (136-145)
--- NOTE | 2018-08-02 16:15 | NUR ---
TELE HAS REMAINED NSR. SHE IS ORIENTED BUT [place]. SHE AMBULATES WELL WITH A WALKER AND 1 ASSIST. SHE HAD A SHOWER THIS AFTERNOON. RECEIVED ORDERS FOR NYSTATIN S&S AND NYSTATIN CREAM. L MASTECTOMY INCISION IS NOT COMPLETELY APPROXIMATED LATERALLY, BUT IS WITHOUT DRAINAGE OR OTHER SIGNS OF INFECTION. NORVASC STARTED FOR BETTER BP CONTROL. SHE LIKES TO HAVE SOMETHING FOR PAIN IN HER ARMS, HEAD AND BACK MOST OF THE TIME. I HAVE BEEN ALTERNATING HER TYLENOL, NORCO AND FIORICET. HER DAUGHTER WAS HERE AND CONSULTED WITH THE DOCTOR.
--- NOTE | 2018-08-02 18:44 | NUR ---
SHE IS RESTING WITH THE LIGHTS OFF. SHE TOOK 1 DOSE OF FIORICET TODAY, 1 DOSE OF NORCO TODAY AND 2 DOSES OF TYLENOL. SHE CONTINUES ON ORAL VANCO FOR HER C-DIFF. SHE HAD 2 STOOLS CLOSE TOGETHER AFTER BREAKFAST BUT NONE SINCE. NO RESP. DISTRESS.
[2018-08-03 05:03] LABS: BASOPHILS ABSOLUTE AUTO 0.06 K/mm3 (0.00-0.23); BASOPHILS PERCENT AUTO 0 % (0-2); EOSINOPHILS ABSOLUTE AUTO 0.56 K/mm3 (0.00-0.68); EOSINOPHILS PERCENT AUTO 4 % (0-6); Hemoglobin 8.4 g/dL (11.5-16.0); IMMATURE GRAN ABSOLUTE AUTO 0.21 K/mm3 (0.00-0.10); IMMATURE GRAN PERCENT AUTO 2 % (0-1); LYMPHOCYTES ABSOLUTE AUTO 1.88 K/mm3 (0.84-5.20); LYMPHOCYTES PERCENT AUTO 14 % (21-46); MONOCYTES ABSOLUTE AUTO 1.46 K/mm3 (0.16-1.47); MONOCYTES PERCENT AUTO 11 % (4-13); Mean Corpuscular HGB 24.1 pg (26.0-34.0); Mean Platelet Volume 8.7 fL (9.1-12.4); NEUTROPHILS ABSOLUTE AUTO 9.51 K/mm3 (1.96-9.15); NEUTROPHILS PERCENT AUTO 70 % (41-73); Platelet Count 499 K/mm3 (150-400); RDW Coefficient Variation 21.4 % (11.7-14.2); RDW Standard Deviation 61.6 fL (35.1-46.3); Red Blood Cell Count 3.48 M/mm3 (3.80-5.20); White Blood Cell Count 13.68 K/mm3 (4.00-11.30)
[2018-08-03 05:20] LABS: Mean Corpuscular Volume 81 fL (80-100)
[2018-08-03 05:46] LABS: Percent Saturation 9.7 % (15.0-50.0)
[2018-08-03 06:04] LABS: Albumin, Blood 2.5 g/dL (3.4-5.0); Anion Gap 11 mmol/L (6-16); Blood Urea Nitrogen 24 mg/dL (8-24); Bun/Creatinine Ratio 16.4 (12.0-20.0); CO2, Blood 25 mmol/L (21-32); Calcium, Blood 8.6 mg/dL (8.5-10.1); Chloride, Blood 103 mmol/L (98-108); Creatinine, Blood 1.46 mg/dL (0.40-1.00); Glomerular Filtration Rate 37 (60-); Glucose, Blood 101 mg/dL (70-99); Phosphorus, Blood 4.4 mg/dL (2.5-4.9); Potassium, Blood 3.9 mmol/L (3.5-5.5); Sodium, Blood 139 mmol/L (136-145)
--- NOTE | 2018-08-03 06:22 | NUR ---
the pt called out that she was having trouble breathing, I went into the room saw that she was in distress and proceeded to calm her, moved the hob, placed the nc she had removed back in her nose, when she had calmed down enough for me to use my vociera I requested RT, continued to offer reassurance and encouragement until RT arrived, she informed the RT she did not want anything and for her to leave, at that time I got a call from the AC asking me if there was anything that needed to be done for the pt, stated what had been done and the pt response to it, the whole time the pt's 02 level as measured by the oximeter had never been below 90%, stayed with pt until resting and breathing evenly
--- NOTE | 2018-08-03 07:29 | NUR ---
call light in reach, saline locked, sbar report givento day shift
--- NOTE | 2018-08-03 07:58 | NUR ---
Pt has been in contact isolation since 07/29 at 1930 no order was entered.
[2018-08-03] MEDS ORDERED: MELA3 PO (13:54)
[2018-08-03] MEDS ORDERED: AMLO10 PO (13:54)
[2018-08-03] MEDS ORDERED: VANC125 PO (13:56)
[2018-08-03] MEDS ORDERED: METO50 PO (13:56)
[2018-08-03] MEDS ORDERED: SACC250C PO (13:56)
--- NOTE | 2018-08-03 18:18 | NUR ---
PT DISCHARGED TO HOME WITH DAUGHTER VIA WHEELCHAIR. MEDICATION PRESCRIPTIONS RECIEVED FOR BSC, FWW, INCONTINENCE PADS. MEDICATIONS FAXED TO PHARMACY. FAMILY VERBALIZED UNDERSTANDING OF DISCHARGE INSTRUCTIONS. PT SEEMED VERY ANXIOUS DURING SHIFT. PT ADIMENT TO RECIEVE O2. RT EVAL STATES O2 @HOME NOT NEEDED. EXPLAINED TO PT MULTIPLE TIMES AND GIVEN TEACHING FOR DEEP BREATHIONG TECHNIQUES AT HOME. ALSO EXPLANED TO DAUGHTER. DAUGHTER EXPRESSED UNDERSTANDING. PT WAS VERY UPSET ABOUT NOT RECIEVING 02 FOR HOME USE. AT RT SPOKE TO PT. ALL BELONGINGS WITH PT. FOLLOW UP APPTS EXPLAINED. IV TAKEN OUT.
== END 2018-08-03 16:51 | disposition home or self-care (01) | DRG 917 ==
LOC: ER 03:28 → ICUW 06:25 → ICUE 06:25 → MEDS 07-28 15:36 → ENPENDDIS 08-03 11:58 → MEDS 08-03 16:51
PROVIDERS: Emergency Medicine; Family Medicine; Internal Medicine; Internal Medicine Critical Care Medicine; Internal Medicine Pulmonary Disease; Student in an Organized Health Care Education/Training Program; ADMIT Internal Medicine
PROC: 0BH17EZ Insertion of Endotracheal Airway into Trachea, Via Natural or Artificial Opening (ICD-10-PCS; 2018-07-25)
PROC: 5A1945Z Respiratory Ventilation, 24-96 Consecutive Hours (ICD-10-PCS; 2018-07-25)
PROC: 02HV33Z Insertion of Infusion Device into Superior Vena Cava, Percutaneous Approach (ICD-10-PCS; 2018-07-25)
PROC: B548ZZA Ultrasonography of Superior Vena Cava, Guidance (ICD-10-PCS; 2018-07-25)
PROC: 0DJ08ZZ Inspection of Upper Intestinal Tract, Via Natural or Artificial Opening Endoscopic (ICD-10-PCS; 2018-07-25)
PROC: 30243N1 Transfusion of Nonautologous Red Blood Cells into Central Vein, Percutaneous Approach (ICD-10-PCS; 2018-07-25)
PROC: 30243N1 Transfusion of Nonautologous Red Blood Cells into Central Vein, Percutaneous Approach (ICD-10-PCS; principal; 2018-07-25 14:00)
DX: T43.011A Poisoning by tricyclic antidepressants, accidental (unintentional), initial encounter (principal); J96.90 Respiratory failure, unspecified, unspecified whether with hypoxia or hypercapnia; G92 Toxic encephalopathy; J18.9 Pneumonia, unspecified organism; K25.4 Chronic or unspecified gastric ulcer with hemorrhage; A04.72 Enterocolitis due to Clostridium difficile, not specified as recurrent; B37.0 Candidal stomatitis; E87.1 Hypo-osmolality and hyponatremia; D62 Acute posthemorrhagic anemia; K92.1 Melena; K92.0 Hematemesis; R31.9 Hematuria, unspecified; E86.0 Dehydration; I48.0 Paroxysmal atrial fibrillation; E66.01 Morbid (severe) obesity due to excess calories; I48.91 Unspecified atrial fibrillation; K25.9 Gastric ulcer, unspecified as acute or chronic, without hemorrhage or perforation; N18.3 Chronic kidney disease, stage 3 (moderate); D64.9 Anemia, unspecified; R50.9 Fever, unspecified; C50.912 Malignant neoplasm of unspecified site of left female breast; Y92.9 Unspecified place or not applicable; E87.6 Hypokalemia; D72.829 Elevated white blood cell count, unspecified; R00.0 Tachycardia, unspecified; R79.89 Other specified abnormal findings of blood chemistry; I12.9 Hypertensive chronic kidney disease with stage 1 through stage 4 chronic kidney disease, or unspecified chronic kidney disease; T40.601A Poisoning by unspecified narcotics, accidental (unintentional), initial encounter; M11.831 Other specified crystal arthropathies, right wrist; M11.832 Other specified crystal arthropathies, left wrist; G89.4 Chronic pain syndrome; R51 Headache; F41.9 Anxiety disorder, unspecified; D47.3 Essential (hemorrhagic) thrombocythemia; K22.8 Other specified diseases of esophagus; Z90.12 Acquired absence of left breast and nipple; Z87.11 Personal history of peptic ulcer disease; Z79.899 Other long term (current) drug therapy; Z88.5 Allergy status to narcotic agent
CPT/HCPCS: 31500; 31720; 36415; 36416; 36430; 36556; 51702; 70450; 71045; 73090; 73100; 80047; 80048; 80053; 80069; 81001; 82607; 82728; 82746; 82803; 82947; 83540; 83550; 83605; 83735; 83880; 83930; 84100; 84132; 84145; 84443; 84484; 85014; 85018; 85025; 85027; 86850; 86900; 86901; 86923; 87040; 87070; 87205; 87493; 93005; 93010; 93306; 94002; 94003; 94640; 94760; 94761; 96365; 96366; 96368; 96375; 96376; 97110; 97163; 97166; 97530; 97535; 99291-25; 99292; C1751; C9113; G0480; G8978; G8979; G8987; G8988; J0330; J0360; J0696; J1430; J1940; J2250; J2543; J3010; J3370; J3475; J3480; J7030; J7040; J7050; J7070; J7120; P9016

== ENCOUNTER → 2018-09-20 | Outpatient (CLI) | payer OTHER ==
[~2018-09-20] MED LIST: AMIT25 PO; AMLO10 PO; ANASTROZOLE 1MG PO; ANASTROZOLE5 GM PO; BELSOMRA20 MG PO; BUSP15 PO; BUTALB-ACETAMI1 EACH PO; CYCL10 PO; DEXL60CA3 PO; DIPH50 PO; Driminate50 MG PO; LEVSOD150 PO; LOSA25 PO; MAGOXI400 PO; MELA3 PO; METO50 PO; Norco 10-325 T1 EACH PO; ONDA4 PO; Omeprazole20 M1 PO; POTCHL20ER PO; PREG100 PO; RANITIDINE 150MG PO; SACC250C PO; VANC125 PO; VENL25 PO
[2018-09-20 14:46] LABS: Source, Urine Clean Catch
[2018-09-20 16:56] LABS: Bilirubin, Urine Neg (Neg); Blood, Urine Neg (Neg); Glucose Qualitative, Urine Neg (Neg); Ketones, Urine Neg (Neg); Leukocyte Esterase, Urine 2+ (Neg); Nitrite, Urine Neg (Neg); Protein, Urine Neg (Neg); Specific Gravity, Urine 1.015 (1.003-1.022); Urobilinogen, Urine NORM (Normal)
[2018-09-20 17:09] LABS: Appearance, Urine Clear (Clear); Color, Urine Yellow (P-Yellow)
[2018-09-20 17:10] LABS: Bacteria Few /hpf; Red Blood Cells, Urine 0-2 /hpf (0-2); Squamous Epithelial Cells Few /hpf (Few)
== END | disposition home or self-care (01) ==
LOC: LAB SHORT 14:44 → LAB 14:44
PROVIDERS: Family Medicine
DX: N39.3 Stress incontinence (female) (male) (principal)
CPT/HCPCS: 81001; 87086